=== PATIENT | female | born 1995 | race Two or more races ===

== ENCOUNTER 2021-12-21 14:59 | Emergency (ER) | payer OTHER ==
[~2021-12-21] VITALS: Ht 170.2 cm; Wt 63.5 kg
[2021-12-21] MEDS ORDERED: AMOX500T3 PO (18:02)
[2021-12-21] MEDS ORDERED: FLUT1SPR5 (18:03)
[2021-12-21 18:09] VITALS: BP 135/70
== END 2021-12-21 19:13 | disposition home or self-care (01) ==
LOC: ER 14:59
DX: J03.90 Acute tonsillitis, unspecified (principal)

== ENCOUNTER → 2023-04-10 | Emergency (ER) | payer MEDICAID, OTHER ==
[~2023-04-10] VITALS: Ht 167.6 cm; Wt 81.8 kg
[~2023-04-10] MED LIST: AMOX500T3 PO; FLUT1SPR5
[2023-04-10 22:26] VITALS: BP 128/76; PULSE 77; RESP 20; O2SAT 97
== END | disposition left against medical advice (07) ==
LOC: ER 22:17
DX: H92.01 Otalgia, right ear (principal); Z53.21 Procedure and treatment not carried out due to patient leaving prior to being seen by health care provider

== ENCOUNTER 2025-05-28 09:34 | Emergency (ER) | payer OTHER ==
[~2025-05-28] VITALS: Ht 167.6 cm; Wt 90.3 kg
[2025-05-28 09:40] VITALS: BP 140/97; PULSE 75; RESP 16; TEMP 98.2; O2SAT 99
== END 2025-05-28 10:23 | disposition left against medical advice (07) ==
LOC: ER 09:34
DX: A64 Unspecified sexually transmitted disease (principal)